=== PATIENT | male | born 1985 | race Caucasian/White ===

== ENCOUNTER 2020-01-13 21:23 | Emergency (ER) | payer OTHER ==
[~2020-01-13] VITALS: Ht 172.7 cm; Wt 86.2 kg
[2020-01-13] MEDS ORDERED: CIPROFLOXIN HC2.5 M1 OPHTHALMIC (22:06)
[2020-01-13 22:15] VITALS: BP 135/70
== END 2020-01-13 22:16 | disposition home or self-care (01) ==
LOC: M.ERS 21:23
DX: S05.02XA Injury of conjunctiva and corneal abrasion without foreign body, left eye, initial encounter (principal); X58.XXXA Exposure to other specified factors, initial encounter; Y93.89 Activity, other specified; Y92.89 Other specified places as the place of occurrence of the external cause; Y99.8 Other external cause status